=== PATIENT | female | born 1945 | race Caucasian/White ===

== ENCOUNTER → 2023-10-29 08:58 | Outpatient (REF) | payer OTHER, SELFPAY ==
[2023-10-29 12:04] LABS: Blood Urea Nitrogen 30 mg/dl (7-17); Calcium 9.4 mg/dl (8.4-10.2); Carbon Dioxide 32 mmol/L (22-30); Chloride 102 mmol/L (98-107); Glucose 118 mg/dl (70-99); Potassium 4.5 mmol/L (3.5-5.1); Sodium 138 mmol/L (135-145); eGFR > 60.00
[2023-10-29 12:14] LABS: Glycohemoglobin (HgbA1c) 6.2 % (4.0-5.6)
== END ==
LOC: HWLAB 08:58
PROVIDERS: ATTENDING PHYSICIAN Internal Medicine
DX: I10 Essential (primary) hypertension (principal); E11.9 Type 2 diabetes mellitus without complications
CPT/HCPCS: 36415; 80048; 83036

== ENCOUNTER → 2023-12-30 10:43 | Outpatient (REF) | payer OTHER, SELFPAY | LOC: HWRAD 10:43 | PROVIDERS: ATTENDING PHYSICIAN Internal Medicine Rheumatology; PRIMARYCARE PHYSICIAN Internal Medicine | DX: M81.0 Age-related osteoporosis without current pathological fracture (principal) | CPT/HCPCS: 77080 ==

== ENCOUNTER → 2024-03-13 17:04 | Outpatient (REF) | payer OTHER, SELFPAY | LOC: PAVMRI 17:04 | PROVIDERS: ATTENDING PHYSICIAN Physical Medicine & Rehabilitation; FAMILY PHYSICIAN Internal Medicine | DX: G89.4 Chronic pain syndrome (principal); M47.816 Spondylosis without myelopathy or radiculopathy, lumbar region; M46.1 Sacroiliitis, not elsewhere classified; M48.062 Spinal stenosis, lumbar region with neurogenic claudication | CPT/HCPCS: 72148 ==

== ENCOUNTER → 2024-04-10 13:27 | Outpatient (REF) | payer OTHER, SELFPAY | LOC: RAD 13:27 | PROVIDERS: ATTENDING PHYSICIAN Physical Medicine & Rehabilitation; FAMILY PHYSICIAN Internal Medicine | DX: G89.4 Chronic pain syndrome (principal); M47.816 Spondylosis without myelopathy or radiculopathy, lumbar region; M46.1 Sacroiliitis, not elsewhere classified; M48.062 Spinal stenosis, lumbar region with neurogenic claudication | CPT/HCPCS: 72114 ==

== ENCOUNTER → 2024-04-25 14:43 | Outpatient (REF) | payer OTHER, SELFPAY | LOC: RAD 14:43 | PROVIDERS: ATTENDING PHYSICIAN Hospitalist | DX: A69.23 Arthritis due to Lyme disease (principal) | CPT/HCPCS: 73560 ==

== ENCOUNTER → 2024-04-28 09:10 | Outpatient (REF) | payer OTHER, SELFPAY ==
[2024-04-28 11:30] LABS: % Basophils 0.5 % (0-2); % Eosinophils 4.1 % (0-6); % Immature Granulocytes 0.2 % (0-0.5); % Lymphocytes 23.9 % (20.5-51.1); % Monocytes 8.4 % (1.7-9.3); % Neutrophils 62.9 % (42.2-75.2); Absolute Eosinophils 0.3 10^3/uL (0-0.7); Absolute Lymphocytes 1.5 10^3/uL (1.2-3.4); Absolute Monocytes 0.5 10^3/uL (0.1-0.6); Hematocrit 43.8 % (37.0-47.0); Hemoglobin 14.6 g/dL (12.0-16.0); Mean Corp Hgb Conc. 33.3 g/dL (33.0-37.0); Mean Corpuscular Hgb 30.4 pg (27.0-31.0); Mean Corpuscular Volume 91.1 fL (81.0-99.0); Mean Platelet Volume 11.1 fL (7.4-10.4); Nucleated Red Blood Cells % 0 %; Platelet Count 270 10^3/uL (130-400); Red Blood Cell Count 4.81 10^6/uL (4.20-5.40); Red Cell Dist. Width 12.9 % (11.5-14.5); White Blood Cell Count 6.4 10^3/uL (4.8-10.8)
[2024-04-28 11:50] LABS: Albumin 4.4 g/dl (3.5-5.0); Carbon Dioxide 31 mmol/L (22-30); Total Cholesterol 262 mg/dl (50-199)
[2024-04-28 12:00] LABS: ALT (SGPT) 19 U/L (0-35); AST (SGOT) 25 U/L (14-36); Alkaline Phosphatase 91 U/L (38-126); Blood Urea Nitrogen 32 mg/dl (7-17); Calcium 10.4 mg/dl (8.4-10.2); Chloride 99 mmol/L (98-107); Glucose 112 mg/dl (70-99); HDL Cholesterol 43 mg/dl; LDL Cholesterol, Calculated 171 mg/dl; Potassium 5.1 mmol/L (3.5-5.1); Sodium 143 mmol/L (135-145); Total Bilirubin 0.8 mg/dl (0.2-1.3); Total Protein 6.7 g/dl (6.3-8.2); Triglyceride 243 mg/dl (10-149); Very Low Density Lipoprotein 48 mg/dl (0-30); eGFR > 60.00
[2024-04-28 12:13] LABS: TSH 0.95 uIU/ml (0.47-4.68)
== END ==
LOC: HWLAB 09:10
PROVIDERS: ATTENDING PHYSICIAN Internal Medicine
DX: I10 Essential (primary) hypertension (principal); R00.2 Palpitations; E66.9 Obesity, unspecified; I49.3 Ventricular premature depolarization
CPT/HCPCS: 36415; 80053; 80061; 83036; 84443; 85025

== ENCOUNTER → 2024-05-09 18:44 | Outpatient (REF) | payer OTHER, SELFPAY | LOC: PAVMRI 18:44 | PROVIDERS: ATTENDING PHYSICIAN Physician Assistant; FAMILY PHYSICIAN Internal Medicine | DX: M25.562 Pain in left knee (principal) | CPT/HCPCS: 73721 ==

== ENCOUNTER 2024-08-14 14:26 | Outpatient (RCR) | payer OTHER, SELFPAY | END 2024-08-14 23:59 | disposition home or self-care (01) | LOC: RPT 14:26 | PROVIDERS: ATTENDING PHYSICIAN Specialist; FAMILY PHYSICIAN Internal Medicine | DX: M19.011 Primary osteoarthritis, right shoulder (principal); Z73.6 Limitation of activities due to disability; M62.81 Muscle weakness (generalized); Z96.612 Presence of left artificial shoulder joint | CPT/HCPCS: 97010; 97110; 97112; 97140; 97162 ==

== ENCOUNTER 2024-09-06 13:03 | Outpatient (RCR) | payer OTHER, SELFPAY | END 2024-09-06 13:54 | disposition home or self-care (01) | LOC: RPT 13:03 | PROVIDERS: ATTENDING PHYSICIAN Specialist; FAMILY PHYSICIAN Internal Medicine | DX: M19.011 Primary osteoarthritis, right shoulder (principal); Z73.6 Limitation of activities due to disability; M62.81 Muscle weakness (generalized); Z96.612 Presence of left artificial shoulder joint | CPT/HCPCS: 97010; 97110; 97112; 97140 ==

== ENCOUNTER 2024-10-06 06:07 | Inpatient (IN) | payer OTHER, SELFPAY ==
[2024-09-12 13:29] VITALS: BMI 36.7
[2024-09-12 14:07] LABS: Hematocrit 42.7 % (37.0-47.0); Hemoglobin 13.6 g/dL (12.0-16.0); Mean Corp Hgb Conc. 31.9 g/dL (33.0-37.0); Mean Corpuscular Volume 94.1 fL (81.0-99.0); Mean Platelet Volume 11.3 fL (7.4-10.4); Platelet Count 298 10^3/uL (130-400); Red Blood Cell Count 4.54 10^6/uL (4.20-5.40); Red Cell Dist. Width 12.8 % (11.5-14.5); White Blood Cell Count 10.2 10^3/uL (4.8-10.8)
[2024-09-12 14:34] LABS: ALT (SGPT) 16 U/L (0-35); AST (SGOT) 21 U/L (14-36); Albumin 4.2 g/dl (3.5-5.0); Alkaline Phosphatase 74 U/L (38-126); Blood Urea Nitrogen 41 mg/dl (7-17); Calcium 9.1 mg/dl (8.4-10.2); Carbon Dioxide 35 mmol/L (22-30); Chloride 95 mmol/L (98-107); Estimated Creatinine Clearance 44 ml/min; Glucose 96 mg/dl (70-99); Potassium 4.8 mmol/L (3.5-5.1); Sodium 138 mmol/L (135-145); Total Bilirubin 0.4 mg/dl (0.2-1.3); Total Protein 6.5 g/dl (6.3-8.2); eGFR 42.35
[2024-09-29 10:53] VITALS: BMI 36.7
[2024-09-29 11:28] VITALS: BMI 36.7
--- NOTE | 2024-10-02 08:12 | PTCARENOTE ---
Patients 09/12 BUN -41; Creat- 1.3; GFR -42.35- Geeta @ Dr. Mcgee office notified
[2024-10-06] VITALS (25 sets, daily range): BP systolic 120–173; BP diastolic 61–133
[2024-10-06] MEDS: CELEBREX 200 MG PO (06:46)
[2024-10-06] MEDS: NORMOSOL-R/PLASMALYTE-A 1000 IV (06:46)
[2024-10-06] MEDS: TYLENOL 1000 MG PO (06:46)
--- NOTE | 2024-10-06 08:38 | CON.PUL ---
Consultation
Consultation Request
Date/Time Consultation Requested: 10/06/2024819
Date/Time Consultation Performed: 10/06/2024834
Requesting Provider: Dr. Merritt
Performing Provider: Dr. Mondragon
Reason for Consultation: SOB/Hypoxia/Cyanosis
Medical History
-
Chief Complaint: Elective right shoulder replacement
History of Present Illness:
79-year-old female non-smoker with a past medical history of osteoarthritis of right shoulder, hypertension, mixed hyperlipidemia, paroxysmal SVT, history of PVCs s/p ablation, GERD, history of AK, cervical stenosis, history of Lyme disease, and
lumbar stenosis who presents with elective right reverse shoulder replacement by Dr. Mcgee. In SDS, the patient was saturating 96% via her right great toe as her hands showed hypoxia to 93%. She says that this is common for her. Patient had an
interscalene block and while she was transferring to the bed she became very short of breath, hypoxic and cyanotic. Procedure was canceled and she went to the PACU for further management and was placed onto oxygen, currently on 2 L/min. She did
require up to 60% FiO2 during this event. CXR shows elevated right hemidiaphragm which was also present in 2019, which is now worsened likely due to presence of interscalene block. Pulmonary service now consulted for additional
management/recommendations.
When I saw the patient she is still feeling short of breath during movement only. Not short of breath at rest. She is not normally short of breath and has no respiratory difficulties during daily activities. Currently denies cough, NAVARRETE, chest
pain, nausea, fevers or chills.
PMHx: Right shoulder arthritis, hypertension, mixed hyperlipidemia, paroxysmal SVT, prediabetes, RBBB, History of AK, history of PVC ablation, GERD, cervical stenosis, lumbar stenosis, history of Lyme disease
PSHx: Right hip replacement, left hip replacement, parathyroidectomy, left shoulder reversal, right hip revision, minimally invasive lumbar decompression
Past Medical History
Past Medical History: Other (Above as per HPI)
Past Surgical History: Other (Above as per HPI)
Social History
Tobacco: Non-smoker
Alcohol: None
Drug: None
Family History
Family History: Cancer (Mother + father), Hypertension (Mother + father) and Other (Paternal grandmother: Renal disease)
Allergies / Home Medications
Allergies
Allergy/AdvReac Type Severity Reaction Status Date / Time
amoxicillin [Amoxicillin] Allergy Rash Verified 10/06/24 06:30
Penicillins Allergy Rash Verified 10/06/24 06:30
Home Medications
�Medication �Instructions �Recorded �Confirmed �Last Taken �Type
metoprolol succinate 50 mg 100 mg PO DAILY 07/13/11 10/06/24 10/06/24 04:30 History
tablet,extended release 24 hr
amlodipine 10 mg tablet 10 mg PO DAILY Blood pressure #30 04/20/19 10/06/24 10/06/24 04:30 Rx
tabs
cetirizine 10 mg tablet (Zyrtec) 10 mg PO DAILY 09/29/24 10/06/24 10/05/24 09:00 History
cholecalciferol (vitamin D3) 125 125 mcg PO DAILY 09/29/24 10/06/24 09/29/24 History
mcg (5,000 unit) tablet (Vitamin
D3)
diclofenac sodium 100 mg 100 mg PO BID 09/29/24 10/06/24 09/29/24 History
tablet,extended release 24 hr
gabapentin 300 mg capsule 300 mg PO TID 09/29/24 10/06/24 10/06/24 04:30 History
gabapentin 600 mg tablet 600 mg PO TID 09/29/24 10/06/24 10/06/24 04:30 History
magnesium glycinate 400 mg PO NOON 09/29/24 10/06/24 09/30/24 History
mupirocin 2 % topical ointment 1 applic topical BID 09/29/24 10/06/24 10/06/24 04:30 History
omeprazole 20 mg tablet,delayed 20 mg PO HS 09/29/24 10/06/24 10/04/24 History
release
tramadol 50 mg tablet 50 mg PO BID 09/29/24 10/06/24 10/05/24 17:00 History
valsartan 320 mg tablet 320 mg PO DAILY 09/29/24 10/06/24 10/05/24 09:00 History
vibegron 75 mg tablet (Gemtesa) 75 mg PO DAILY 09/29/24 10/06/24 10/06/24 04:30 History
Review of Systems
-
History Source: Patient
All other systems: Negative unless noted
Vitals / Labs / Diagnostic Testing
Vital Signs
Temp Pulse Resp BP Pulse Ox
98 F 70 22 155/77 92
10/06/24 07:35 10/06/24 08:00 10/06/24 08:00 10/06/24 08:00 10/06/24 08:33
Lab Data
09/12/24 12:57
Diagnostic Testing:
Physical Exam
-
HEENT: Normocephalic and Anicteric
Cardiovascular: S1/S2, Rub (negative) and Peripheral Edema (negative)
Respiratory: Clear, Wheeze (negative), Rales (negative), Rhonchi (negative) and Non-Labored Respirations
GI: Soft, Distended (Abdominal obesity), Non Tender and Normal Bowel Sounds
Neurology: AO x 3 and Tremors (negative)
Skin: Warm and Dry
General: Respiratory Distress (negative), Comfortable, Fever (negative) and Chills (negative)
Assessment
-
Assessment: 79-year-old female non-smoker with a past medical history of osteoarthritis of right shoulder, hypertension, mixed hyperlipidemia, paroxysmal SVT, history of PVCs s/p ablation, GERD, history of AK, cervical stenosis, history of Lyme
disease, and lumbar stenosis who presents with elective right reverse shoulder replacement by Dr. Mcgee. In SDS, the patient was saturating 96% via her right great toe as her hands showed hypoxia to 93%. She says that this is common for her.
Patient had an interscalene block and while she was transferring to the bed she became very short of breath, hypoxic and cyanotic. Procedure was canceled and she went to the PACU for further management and was placed onto oxygen, currently on 2
L/min. She did require up to 60% FiO2 during this event. CXR shows elevated right hemidiaphragm which was also present in 2019, which is now worsened likely due to presence of interscalene block. Pulmonary service now consulted for additional
management/recommendations.
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
Impression:
#Acute SOB with hypoxia and cyanosis
#Moderate right hemidiaphragm elevation
#Primary osteoarthritis of the right shoulder with planned right reverse shoulder replacement
#Obesity (BMI: 36.7)
#History of paroxysmal SVT
#History of PVCs s/p ablation
#GERD
#History of lung disease
#Hypertension
Plan:
- Seems that pt had a sudden hypoxic event while transferring to the bed for a right reverse shoulder replacement, occuring after an interscalene block
- She does have an elevated right hemidoaphragm, and I suspect that she had a hypoventilatory event that caused her symptoms although after speaking with anesthesia, usually patient's do not have this side effect even with a poor pulmonary status
- I will give her a DuoNeb treatment now to see if she feels any better as she still feels SOB with talking or with movement
- If her respiratory status improves then she potentially could get the surgery today
- Regardless if she has surgery today or not, if SOB persists then she will need to be admitted for continued observation
- Keep off o2 to see what her requirements are, and maintain SpO2 >90-94%
- Place back onto o2 if needed to maintain sats above
- Check blood work including a chemistry with Mg and phosphorus level, BNP and troponin (pending)
- She clinically is not volume overloaded and her EKG does not show signs of ischemia
- Continue prn nebulized bronchodilators - not currently bronchospastic
- Incentive spirometer if she gets admitted to prevent atelectasis
- Replete electrolytes with K>4, Mg>2
- Trend H/H and transfuse if needed to keep Hb>7g/dL; keep plt>20k, unless there is concern for bleeding then keep plt>50k
- Maintain euglycemia with goal BG >100 and <180
- DVT ppx: SCDs for now; if she gets admitted then start chemical ppx
Pulmonary service will continue to follow along.
Data:
CXR 10/06/2024:
No acute disease of the chest.
Moderate elevation of the right hemidiaphragm. Progressed. Diaphragmatic paralysis cannot be excluded.
Total time spent today was 57 minutes for this encounter. Time includes reviewing laboratory test/imaging results, reviewing pertinent medical records, obtaining and reviewing medical history, performing an appropriate exam, ordering medications,
tests and procedures. Time also includes documentation of this encounter, coordinating patient care and communicating with other healthcare professionals. Total time does not include separately billed tests performed on this date of service.
[2024-10-06] MEDS: DUONEB 3 ML INH ×2 (10:09→14:12)
--- NOTE | 2024-10-06 10:13 | CON.CAR ---
Addendum entered and electronically signed by Chalo Bautista DO 10/06/24 14:20:
Addendum:
Echocardiogram shows normal LV RV function, EF55-60%, no significant VHD, PASP 30-35mmHg.
Addendum entered and electronically signed by Chalo Bautista DO 10/06/24 14:06:
I saw and examined the patient.
The Installer Apprentice's note was reviewed and I agree with the note.
Comment:
GENERAL: no acute distress
EYE: sclera anicteric
NECK: Supple, no JVD, no carotid bruit appreciated
ENT: normal nose, moist mucosal membranes
CARDIAC: Regular rate and rhythm, +S1/S2, no murmur, rubs, or gallops
CHEST/PULMONARY: Normal effort, clear breath sounds
ABDOMEN: Soft, without focal tenderness or distention
NEUROLOGICAL: Alert and oriented x3
SKIN: Warm and dry, no rash
PSYCH: Normal and appropriate interaction.
EKG sinus rhythm right bundle branch block no significant change from prior on 09/12/2024
A/P as below
Patient reporting ability to achieve greater than equal to 4 metabolic equivalents of activity without limitation
Patient experienced shortness of breath episode with hypoxia and cyanosis following interscalene block; patient has known right hemidiaphragm. Patient underwent evaluation by pulmonology who provided DuoNeb treatment and believe patient stable for
proceed with procedure
Lab work stable including BNP (less than 100), troponin negative
Check transthoracic echo, if no significant change from prior or significant valvular disease/cardiomyopathy, acceptable risk to proceed as planned as likely related to nerve block and underlying hypoventilation syndrome but will defer judgment to
anesthesia and surgical team
Original Note:
Consultation
Consultation Request
Date/Time Consultation Requested: 10/06/2024
Date/Time Consultation Performed: 10/06/2024
Requesting Provider: Orthopedics
Performing Provider: Latasha Escobedo PA-C for Dr. Bautista
Reason for Consultation: Shortness of breath
Medical History
-
History of Present Illness:
Patient is a 79-year-old female with past medical history significant for hypertension, SVT status post ablation, PVCs, hypertension, GERD, stress incontinence, osteoarthritis and remote AL 2004 who presents for elective right TSA 10/06/2024 with
Everardo. Patiently initially was saturating 96% via her right great toe and 93% pulse oximetry of her hands prior to surgery. Patient had interscalene block and while she was transferring to the bed she became very short of breath, hypoxic and
cyanotic requiring 60% FiO2 during event. Procedure was canceled and she was transferred back to PACU for further management where she was was placed onto supplemental oxygen. Cardiology consult requested. EKG showed sinus rhythm with right bundle
branch block with nonspecific T wave inversion now in anterolateral leads. Chest x-ray showed no acute cardiopulmonary disease with moderate elevation of right hemidiaphragm which is progressed from prior study in 2019. At time of this evaluation
patient resting comfortably in bed. She is now off oxygen and denies chest pain, shortness of breath, palpitations, orthopnea, PND, edema
Patient reports normally she is able to perform activities and chores around the house without chest pain or shortness of breath.
Past medical history:
Hypertension
Mixed hyperlipidemia
Supraventricular tachycardia, status post ablation 2006 Dr. Dee
Remote AL in 2004
Right bundle branch block
PVCs
GERD
Cervical stenosis
Lumbar stenosis
Lyme disease.
Past Medical History
Past Medical History: Other (See HPI)
Past Surgical History: Orthopedic (Right total hip replacement 1997, left hip replacement 1996, left shoulder reversal October 2017, right hip revision February 2017 lumbar decompression March 2021) and Other (Parathyroidectomy 2016)
Social History
Tobacco: Non-Smoker
Alcohol: None
Drug: None
Personal:
Living: With Family
Family History
Family History: Other (Father: Cancer, hypertension. Mother: Cancer, hypertension)
Allergies / Home Medications
Allergy/AdvReac Type Severity Reaction Status Date / Time
amoxicillin [Amoxicillin] Allergy Rash Verified 10/06/24 06:30
Penicillins Allergy Rash Verified 10/06/24 06:30
�Medication �Instructions �Recorded �Confirmed �Type
metoprolol succinate 50 mg 100 mg PO DAILY 07/13/11 10/06/24 History
tablet,extended release 24 hr
amlodipine 10 mg tablet 10 mg PO DAILY Blood pressure #30 04/20/19 10/06/24 Rx
tabs
cetirizine 10 mg tablet (Zyrtec) 10 mg PO DAILY 09/29/24 10/06/24 History
cholecalciferol (vitamin D3) 125 125 mcg PO DAILY 09/29/24 10/06/24 History
mcg (5,000 unit) tablet (Vitamin
D3)
diclofenac sodium 100 mg 100 mg PO BID 09/29/24 10/06/24 History
tablet,extended release 24 hr
gabapentin 300 mg capsule 300 mg PO TID 09/29/24 10/06/24 History
gabapentin 600 mg tablet 600 mg PO TID 09/29/24 10/06/24 History
magnesium glycinate 400 mg PO NOON 09/29/24 10/06/24 History
mupirocin 2 % topical ointment 1 applic topical BID 09/29/24 10/06/24 History
omeprazole 20 mg tablet,delayed 20 mg PO HS 09/29/24 10/06/24 History
release
tramadol 50 mg tablet 50 mg PO BID 09/29/24 10/06/24 History
valsartan 320 mg tablet 320 mg PO DAILY 09/29/24 10/06/24 History
vibegron 75 mg tablet (Gemtesa) 75 mg PO DAILY 09/29/24 10/06/24 History
Review of Systems
-
History Source: Patient
All other systems: Negative unless noted
Physical Exam
Vital Signs
Temp Pulse Resp BP Pulse Ox
98 F 65 14 131/68 93
10/06/24 07:35 10/06/24 09:30 10/06/24 09:30 10/06/24 09:30 10/06/24 09:31
Lab Results
09/12/24 12:57
Impression / Plan
-
PCP: Vu Irving
Warehouse Material Handler: Jose F Vernon, last seen in cardiology office in 2018
Impression:
Presented 10/06/2024 for elective shoulder replacement and developed acute shortness of breath
Acute shortness of breath with hypoxia and cyanosis
Moderate right hemidiaphragm elevation
Abnormal EKG
Hypertension
Mixed hyperlipidemia
Supraventricular tachycardia, status post ablation 2006 Dr. Dee
Remote AL in 2004
Right bundle branch block
PVCs
GERD
Cervical stenosis
Lumbar stenosis
Lyme disease
Lexiscan stress 02/22/2019: Rare PVCs. Myocardial imaging with mildly decreased perfusion that is fixed and apex consistent with soft tissue attenuation. LV ejection fraction 55% with normal contractility.
Stress echo 04/08/2016: exercise 4:00 (5.8 METs). ECG: Normal. Stress echo images demonstrated no evidence of stress-induced ischemia
echo 11/14/2018: Normal LV size and systolic function, EF 55-60 percent. Normal RV size and systolic function. Normal atria. Trace MR. Trileaflet sclerotic aortic valve with no AI. Trace TR.
Cath 10/13/2010: [facility]: LM: Normal, LAD: Normal size with moderate atherosclerosis and 50% mid, LCX: Normal, RCA: Normal. LVEF: 60% (Dr. Bret Strickland)
Plan:
-Presented 10/06/2024 for elective shoulder replacement and developed acute shortness of breath with hypoxia and cyanosis while transferring to bed from stretcher after getting interscalene block
-Initially required 60% FiO2 then transitioned to 2 L oxygen via nasal cannula with improvement of symptoms. Now on room air with good saturation
-Chest x-ray showed moderate right hemidiaphragm elevation
-EKG sinus rhythm with right bundle branch block and new anterolateral T wave inversion. Possibly due to lead placement. Patient denies chest pain. Would repeat EKG
-Check proBNP (although patient does not look acutely volume overloaded and does not have history of heart failure) and troponin
-Check echo
-Continue to monitor on telemetry
-Patient was last seen in cardiology office in 2019. At that time she had normal LV size and function and no significant valvular disease. She had nuclear stress test in 2019 which did not demonstrate any ischemia.
-Pulmonary has been consulted. Review of their consultation suggest hypoventilatory event as a cause of her symptoms. They have recommended nebulizer treatment
HPI 10/06/2024:
Patient is a 79-year-old female with past medical history significant for hypertension, SVT status post ablation, PVCs, hypertension, GERD, stress incontinence, osteoarthritis and remote AL 2004 who presents for elective right TSA 10/06/2024 with
Everardo. Patiently initially was saturating 96% via her right great toe and 93% pulse oximetry of her hands prior to surgery. Patient had interscalene block and while she was transferring to the bed she became very short of breath, hypoxic and
cyanotic requiring 60% FiO2 during event. Procedure was canceled and she was transferred back to PACU for further management where she was was placed onto supplemental oxygen. Cardiology consult requested. EKG showed sinus rhythm with right bundle
branch block with nonspecific T wave inversion now in anterolateral leads. Chest x-ray showed no acute cardiopulmonary disease with moderate elevation of right hemidiaphragm which is progressed from prior study in 2019. At time of this evaluation
patient resting comfortably in bed. She is now off oxygen and denies chest pain, shortness of breath, palpitations, orthopnea, PND, edema
Patient reports normally she is able to perform activities and chores around the house without chest pain or shortness of breath.
Data Reviewed
-
EKG: Report Reviewed by me, Discussed with Physician, Discussed with Nurse, Discussed with Patient and Discussed with Family
Radiology: Report Reviewed by me, Discussed with Physician, Discussed with Nurse, Discussed with Patient and Discussed with Family
Old Records: Reviewed
[2024-10-06 11:38] LABS: NT-proBNP 64.3 pg/ml; Troponin I < 0.012 ng/ml
[2024-10-06 11:43] LABS: Blood Urea Nitrogen 27 mg/dl (7-17); Calcium 8.5 mg/dl (8.4-10.2); Carbon Dioxide 27 mmol/L (22-30); Chloride 98 mmol/L (98-107); Estimated Creatinine Clearance 95 ml/min; Glucose 131 mg/dl (70-99); Potassium 4.3 mmol/L (3.5-5.1); Sodium 134 mmol/L (135-145); eGFR > 60.00
--- NOTE | 2024-10-06 12:51 | W.PN.UPDATE ---
Update Note
Progress Note Update
Went back to see the patient after she received a DuoNeb treatment. She feels well, saying that she can take a deep breath now and is not nearly as short of breath. I touch base with anesthesia, with Dr. Merritt, and said that I believe patient is
stable for OR now.
--- NOTE | 2024-10-06 14:55 | PTCARENOTE ---
Patient taken back to OR @ [id number]. Monitored in PACU until cleared to proceed.
--- NOTE | 2024-10-06 15:14 | W.PN.UPDATE ---
Update Note
Progress Note Update
R shoulder OA s/p R Reverse MANDEEP w/ Dr Mcgee 10/06/24
- s/p L Reverse MANDEEP, 2018, remote R SHANKAR w/ subsequent multiple revisions, and remote L SHANKAR
DVT prophylaxis - ASA, b/l venous foot pumps
Acute SOB with hypoxia and cyanosis in the setting of moderate right hemidiaphragm elevation and interscalene block
- BMP stable, troponin neg, BNP/EKG WNL
- Monitor O2 on continuous pulse ox
- IS
- Improved w/ Duoneb -> continue
- Minimize opioids as able
- Appreciate pulmonary and cardio
HTN - + parameters - monitor BP
PSVT s/p ablation, PVCs, CAD w/ remote ND - monitor on tele
Seasonal asthma - monitor O2
- IS
CKD stage 3 - minimize nephrotoxins
GERD - continue PPI therapy HS
Peripheral neuropathy - continue Gabapentin
- Consider change to Lyrica
HLD
RBBB
Cervical and lumbar stenosis
OAB w/ stress incontinence
Lyme disease
Depression
Anxiety
Osteopenia
Obesity, BMI 36.7
[2024-10-06] MEDS: DILAUDID 0.25 MG IV ×2 (17:05→17:17)
[2024-10-06] MEDS: NEURONTIN 900 MG PO ×2 (17:51→23:05)
[2024-10-06] MEDS: NSS 1000 IV (17:53)
--- NOTE | 2024-10-06 18:39 | PTCARENOTE ---
Pt arrived to 2S in bed. RUE with + sensation and movement (able to wiggle to fingers), palpable radial pulse, warm to touch and cap refill < 2 secs. RUE maintained in sling. NWB status reviewed with pt, pt verbalized understanding. RUE maintained
in sling. IVF initiated. Telemetry and continuous pulse ox monitor applied. Pt instructed to ring for assistance getting OOB, verbalized understanding. Denies pain/ nausea. Bed locked and in the lowest position, safety maintained. Oriented to room
and call staley, spouse at bedside.
[2024-10-06] MEDS: COLACE 100 MG PO (20:15)
[2024-10-06] MEDS: DECADRON 4 MG PO (20:18)
[2024-10-06] MEDS: SENOKOT 17.2 MG PO (20:27)
[2024-10-06] MEDS: BACTROBAN 2% OINTMENT 1 APPLIC NASAL (20:28)
[2024-10-06] MEDS: DILAUDID 0.5 MG IV (20:34)
[2024-10-06] MEDS: ASPIRIN 325 MG PO (21:06)
[2024-10-06] MEDS: DIOVAN 320 MG PO (21:06)
[2024-10-06] MEDS: PROTONIX 40 MG PO (21:07)
[2024-10-06] MEDS: ANCEF 5 IV (21:07)
[2024-10-06] MEDS: VITAMIN D3 (cholecalciferol) PO (21:39)
[2024-10-06] MEDS: ZYRTEC PO (21:39)
[2024-10-06] MEDS: TYLENOL 650 MG PO (23:06)
[2024-10-07] MEDS: DILAUDID 0.5 MG IV (02:14)
[2024-10-07] MEDS: TYLENOL PO (04:36)
[2024-10-07] MEDS: ANCEF 5 IV (05:39)
[2024-10-07 07:25] VITALS: BP 164/97
[2024-10-07] MEDS: ROXICODONE 5 MG PO (08:56)
[2024-10-07] MEDS: SENOKOT 17.2 MG PO (08:57)
[2024-10-07] MEDS: TOPROL XL 100 MG PO (08:58)
[2024-10-07] MEDS: ASPIRIN 325 MG PO (08:58)
[2024-10-07] MEDS: NORVASC 10 MG PO (08:58)
[2024-10-07] MEDS: COLACE 100 MG PO (08:58)
[2024-10-07] MEDS: DECADRON 4 MG PO (08:58)
[2024-10-07] MEDS: TYLENOL 650 MG PO ×2 (08:58→11:10)
[2024-10-07] MEDS: BACTROBAN 2% OINTMENT 1 APPLIC NASAL (08:59)
[2024-10-07] MEDS: VITAMIN D3 (cholecalciferol) 125 MCG PO (08:59)
[2024-10-07] MEDS: ZYRTEC 10 MG PO (08:59)
[2024-10-07] MEDS: DIOVAN 320 MG PO (09:02)
[2024-10-07] MEDS: NEURONTIN 900 MG PO (09:02)
--- NOTE | 2024-10-07 10:14 | CM ---
Reviewed the chart notes and spoke with the patient at the bedside. VN order received. Discussed VN with patient, she declined. Patient resides with spouse in a one story home with three steps to enter. The patient reports using a cane for long
distance walking and has a shower rail. The patient has had [facility] in the past and been to a SNF in [place]. The patient confirmed her pharmacy of choice is [facility]. CM continues to be available to patient/family and is
monitoring medical plan for needs at discharge.
Plan: Discharge to home when medically stable. Spouse will provide transportation. No needs anticipated at this time.
--- NOTE | 2024-10-07 10:15 | W.PN.PUL3 ---
Today's Communication / Plan
-
Post-operative management as per orthopedic surgery
Encourage incentive spirometer
Up OOB as tolerated
prn DuoNebs
Outpatient pulmonary office follow-up will be arranged for full PFT and possibly sniff test test for further evaluation of her elevated right hemidiaphragm
Patient is being prepared for discharge home. No additional recommendations at this time. Pulmonary service will now sign off. Please reconsult if there are any additional questions/concerns, or if patient's respiratory status deteriorates.
Assessment
-
Assessment: 79-year-old female non-smoker with a past medical history of osteoarthritis of right shoulder, hypertension, mixed hyperlipidemia, paroxysmal SVT, history of PVCs s/p ablation, GERD, history of [place], cervical stenosis, history of Lyme
disease, and lumbar stenosis who presents with elective right reverse shoulder replacement by Dr. Mcgee. In SDS, the patient was saturating 96% via her right great toe as her hands showed hypoxia to 93%. She says that this is common for her.
Patient had an interscalene block and while she was transferring to the bed she became very short of breath, hypoxic and cyanotic. Procedure was canceled and she went to the PACU for further management and was placed onto oxygen, currently on 2
L/min. She did require up to 60% FiO2 during this event. CXR shows elevated right hemidiaphragm which was also present in 2019, which is now worsened likely due to presence of interscalene block. Pulmonary service now consulted for additional
management/recommendations.
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
Impression:
#Acute SOB with hypoxia and cyanosis
#Moderate right hemidiaphragm elevation
#Primary osteoarthritis of the right shoulder s/p right reverse total shoulder arthroplasty (POD#1)
#Obesity (BMI: 36.7)
#History of paroxysmal SVT
#History of PVCs s/p ablation
#GERD
#History of lung disease
#Hypertension
Plan:
- Appears that pt had a sudden hypoxic event while transferring to the bed yesterday pre-operatively for a right reverse shoulder replacement, occurring after an interscalene block
- She does have an elevated right hemidiaphragm, and I suspect that she had a hypoventilatory event that caused her symptoms although after speaking with anesthesia, usually patient's do not have this side effect even with poor pulmonary status
- Patient felt much better after a DuoNeb treatment; would continue with DuoNebs as needed (not currently bronchospastic)
- Patient went to the OR yesterday afternoon for a right reverse total shoulder arthroplasty with no immediate complications
- Postoperative management as per orthopedic surgery
- Maintain SpO2 >90-94%; she is saturating 97% on room air; no need for walking pulse oximetry at this time
- Blood work from yesterday shows mild hyponatremia with normal proBNP and negative troponin
- Her serum sodium can be rechecked as an outpatient
- She clinically is not volume overloaded and her EKG did not show signs of ischemia
- Incentive spirometer q1hr while awake to prevent atelectasis
- Replete electrolytes with K>4, Mg>2
- Trend H/H and transfuse if needed to keep Hb>7g/dL; keep plt>50k given her post-operative status
- Maintain euglycemia with goal BG >100 and <180
- DVT ppx: start chemical ppx
Patient is being prepared for discharge home. No additional recommendations at this time. Pulmonary service will now sign off. Thank you for allowing us to be involved in the care of this patient. Please reconsult if there are any additional
questions/concerns, or if patient's respiratory status deteriorates.
Data:
CXR 10/06/2024:
No acute disease of the chest.
Moderate elevation of the right hemidiaphragm. Progressed. Diaphragmatic paralysis cannot be excluded.
Total time spent today was 28 minutes for this encounter. Time includes reviewing laboratory test/imaging results, reviewing pertinent medical records, obtaining and reviewing medical history, performing an appropriate exam, ordering medications,
tests and procedures. Time also includes documentation of this encounter, coordinating patient care and communicating with other healthcare professionals. Total time does not include separately billed tests performed on this date of service.
Subjective Data
-
Date of Service:
Date of Service: October 07, 2024
Chief Complaint: Pulmonary Follow Up
Subjective:
Patient seen and evaluated today at bedside. She is doing well and wants to go home. No events reported from overnight. Shortness of breath is markedly improved. She denies chest pain, [place], nausea, fevers or chills.
Review of Systems
General: Other (Negative unless mentioned above)
Objective Data
Data Reviewed
Vital Signs / I&O / Oxygen:
Vital Signs
Temp Pulse Resp BP Pulse Ox
98.0 F 95 16 164/97 90
10/07/24 07:25 10/07/24 09:02 10/07/24 07:25 10/07/24 09:02 10/07/24 07:25
Intake and Output
10/06/24 10/07/24 10/08/24
06:59 06:59 06:59
Intake Total 1440 / 1440
Balance 1440 / 1440
SaO2 90
Nasal Cannula flow liters per 2
minute
Physical Exam
General: Respiratory Distress (negative), Comfortable, Chills (negative) and Sweats (negative)
HEENT: Normocephalic and Anicteric
Cardiovascular: S1-S2 and Peripheral Edema (negative)
Respiratory: Clear, Wheeze (negative), Crackles (negative), Rhonchi (negative) and Non-Labored Respirations
GI: Soft, Non Distended, Non Tender and Normal Bowel Sounds
Neurology: AO x 3 and Tremors (negative)
Skin: Warm, Dry, Cyanosis (negative) and Jaundice (negative)
Labs/Micro/Reports
Lab Data
09/12/24 12:57
10/06/24 11:08
[2024-10-07 10:30] VITALS: BP 176/88; PULSE 87; O2SAT 93
--- NOTE | 2024-10-07 10:31 | W.PN.ORTHO ---
Today's Communication / Plan
-
POD #1 s/p right reverse TSA.
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
-NWB RUE.
-Oxycodone, tylenol, diclofenac for pain control.
-ASA 325 mg po daily x 4 weeks.
-Dressing to remain in place x 2 weeks.
-F/u in 2 weeks for post op appt
Assessment
.
Distal Motor Intact: Yes
Dressing:
Clean, dry and intact.
Assessment:
POD #1 s/p right reverse TSA.
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
-NWB RUE.
-Oxycodone, tylenol, diclofenac for pain control.
-ASA 325 mg po daily x 4 weeks.
-Dressing to remain in place x 2 weeks.
-F/u in 2 weeks for post op appt.
Plan
.
Surgery / Date: 10/06/24 - right reverse TSA Dr. Mcgee
DVT Prophylaxis: Aspirin
Activity:
Out of bed.
PT/OT
Discharge Plan: Home
Subjective
.
.:
Patient doing PT upon my arrival. Reports pain is well controlled and feels more like a pressure/tightness from swelling. Ready to go home.
Vital Signs and Labs
.
Vital Signs and Labs:
Lab Results
09/12/24 12:57
10/06/24 11:08
Temp Pulse Resp BP Pulse Ox
98.0 F 95 16 164/97 90
10/07/24 07:25 10/07/24 09:02 10/07/24 07:25 10/07/24 09:02 10/07/24 07:25
Non-invasive Hgb result: 15.9
Physical Exam
-
Right shoulder: dressing is c/d/i. No erythema or drainage. Mild TTP over shoulder. Mild swelling. Able to wiggle fingers.
--- NOTE | 2024-10-07 10:33 | W.DS.TRANS ---
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
-
Discharge Instructions:
Sleep Apnea Risk Intermediate
Discharge Diagnosis/Procedures R shoulder OA s/p R Reverse TSA w/ Dr Mcgee 10/06/
25
Diet Regular
Activity As tolerated
Additional Activity Non-weightbearing right upper extremity
Driving Restrictions Not until seen by your Dr
Bathing Restrictions OK to Shower
Wound Care Leave dressing on until seen by surgeon's office
for follow-up in 2 weeks.
Instructions:
Stand-Alone Forms: Total Shoulder Replacement D/C
Changes to Home Medications: No
Discharge Medications:
DC Medications w/original date entered in [facility]
metoprolol succinate 50 mg tablet,extended release 24 hr 100 mg PO DAILY Blood Pressure 07/13/11
amlodipine 10 mg tablet 10 mg PO DAILY Blood pressure #30 tabs 04/20/19
cetirizine 10 mg tablet (Zyrtec) 10 mg PO DAILY Allergies 09/29/24
cholecalciferol (vitamin D3) 125 mcg (5,000 unit) tablet (Vitamin D3) 125 mcg PO DAILY Supplement 09/29/24
diclofenac sodium 100 mg tablet,extended release 24 hr 100 mg PO BID inflammation 09/29/24
gabapentin 300 mg capsule 300 mg PO TID Pain 09/29/24
gabapentin 600 mg tablet 600 mg PO TID Pain 09/29/24
magnesium glycinate 400 mg PO NOON Supplement 09/29/24
mupirocin 2 % topical ointment 1 applic topical BID Infection 09/29/24
omeprazole 20 mg tablet,delayed release 20 mg PO HS gerd 09/29/24
tramadol 50 mg tablet 50 mg PO BID Pain 09/29/24
valsartan 320 mg tablet 320 mg PO DAILY Blood Pressure 09/29/24
vibegron 75 mg tablet (Gemtesa) 75 mg PO DAILY Urinary Issue 09/29/24
acetaminophen 325 mg tablet 650 mg (2 x 325 mg) PO Q4HWA 14 days #168 tabs 10/07/24
aspirin 325 mg tablet 325 mg PO DAILY 30 days #30 tabs 10/07/24
dexamethasone 4 mg tablet 4 mg PO Q12 3 days #6 tabs 10/07/24
docusate sodium 100 mg capsule 100 mg PO BID 7 days #14 caps 10/07/24
mupirocin 2 % topical ointment 1 applic intranasal BID 2 days 10/07/24
oxycodone 5 mg tablet 5 mg PO Q4HPRN PRN moderate pain 5 days 10/07/24
Home Medication Changes
Pending Results: No
[2024-10-07 11:11] VITALS: BP 162/82
--- NOTE | 2024-10-07 11:30 | PTCARENOTE ---
Patient with elevated BP of 162/82 when taking discharge vitals, which is patients baseline. TONIA Garces notified. Stated okay to discharge, and to notify patient to take BP at home and make sure she is taking BP medications. Patient notified
and agreed.
== END 2024-10-07 11:37 | disposition home or self-care (01) | DRG 483 ==
LOC: 2 SOUTH 06:07
PROVIDERS: ADMITTING PHYSICIAN Specialist; FAMILY PHYSICIAN Internal Medicine; OTHER PHYSICIAN Internal Medicine Critical Care Medicine; OTHER PHYSICIAN Physician Assistant Medical
PROC: 0LS30ZZ Reposition Right Upper Arm Tendon, Open Approach (ICD-10-PCS; 2024-10-06)
PROC: 0RRJ00Z Replacement of Right Shoulder Joint with Reverse Ball and Socket Synthetic Substitute, Open Approach (ICD-10-PCS; 2024-10-06)
DX: M19.011 Primary osteoarthritis, right shoulder (principal); I10 Essential (primary) hypertension; E66.9 Obesity, unspecified; Z68.36 Body mass index [BMI] 36.0-36.9, adult
CPT/HCPCS: 36415; 71045; 73020; 80048; 80053; 83036; 83880; 84484; 85027; 87070; 93005; 93306; 94640; 97166; 97535; C1713; C1776

== ENCOUNTER 2024-11-13 13:48 | Outpatient (RCR) | payer OTHER, SELFPAY | END 2024-11-13 23:59 | disposition home or self-care (01) | LOC: RPT 13:48 | PROVIDERS: ATTENDING PHYSICIAN Specialist; FAMILY PHYSICIAN Internal Medicine | DX: Z47.1 Aftercare following joint replacement surgery (principal); M19.011 Primary osteoarthritis, right shoulder; Z73.6 Limitation of activities due to disability; M62.81 Muscle weakness (generalized); G62.9 Polyneuropathy, unspecified; M25.511 Pain in right shoulder; Z96.611 Presence of right artificial shoulder joint | CPT/HCPCS: 97010; 97110; 97112; 97140; 97162 ==

== ENCOUNTER → 2024-11-24 10:56 | Outpatient (REF) | payer OTHER, SELFPAY ==
[2024-11-24 13:30] LABS: Blood Urea Nitrogen 28 mg/dl (7-17); Calcium 9.6 mg/dl (8.4-10.2); Carbon Dioxide 31 mmol/L (22-30); Chloride 102 mmol/L (98-107); Glucose 101 mg/dl (70-99); Potassium 4.8 mmol/L (3.5-5.1); Sodium 140 mmol/L (135-145); eGFR > 60.00
== END ==
LOC: HWLAB 10:56
PROVIDERS: ATTENDING PHYSICIAN Internal Medicine Rheumatology; FAMILY PHYSICIAN Internal Medicine
DX: M79.18 Myalgia, other site (principal)
CPT/HCPCS: 36415; 80048

== ENCOUNTER → 2024-12-11 13:09 | Outpatient (REF) | payer OTHER, SELFPAY | LOC: RAD 13:09 | PROVIDERS: ATTENDING PHYSICIAN Internal Medicine Critical Care Medicine; FAMILY PHYSICIAN Internal Medicine | DX: J98.6 Disorders of diaphragm (principal) | CPT/HCPCS: 71046; 76000 ==

== ENCOUNTER 2024-12-12 15:06 | Outpatient (RCR) | payer OTHER, SELFPAY | END 2024-12-12 23:59 | disposition home or self-care (01) | LOC: RPT 15:06 | PROVIDERS: ATTENDING PHYSICIAN Specialist; FAMILY PHYSICIAN Internal Medicine | DX: Z47.1 Aftercare following joint replacement surgery (principal); M19.011 Primary osteoarthritis, right shoulder; Z73.6 Limitation of activities due to disability; M62.81 Muscle weakness (generalized); G62.9 Polyneuropathy, unspecified; M25.511 Pain in right shoulder; Z96.611 Presence of right artificial shoulder joint | CPT/HCPCS: 97010; 97110; 97140 ==

== ENCOUNTER 2025-01-10 11:56 | Outpatient (RCR) | payer OTHER, SELFPAY | END 2025-01-10 23:59 | disposition home or self-care (01) | LOC: RPT 11:56 | PROVIDERS: ATTENDING PHYSICIAN Specialist; FAMILY PHYSICIAN Internal Medicine | DX: Z47.1 Aftercare following joint replacement surgery (principal); M19.011 Primary osteoarthritis, right shoulder; Z73.6 Limitation of activities due to disability; M62.81 Muscle weakness (generalized); G62.9 Polyneuropathy, unspecified; M25.511 Pain in right shoulder; Z96.611 Presence of right artificial shoulder joint | CPT/HCPCS: 97110; 97140 ==

== ENCOUNTER 2025-01-24 12:03 | Outpatient (RCR) | payer OTHER, SELFPAY | END 2025-01-24 12:44 | disposition home or self-care (01) | LOC: RPT 12:03 | PROVIDERS: ATTENDING PHYSICIAN Specialist; FAMILY PHYSICIAN Internal Medicine | DX: Z47.1 Aftercare following joint replacement surgery (principal); M19.011 Primary osteoarthritis, right shoulder; Z73.6 Limitation of activities due to disability; M62.81 Muscle weakness (generalized); G62.9 Polyneuropathy, unspecified; M25.511 Pain in right shoulder; Z96.611 Presence of right artificial shoulder joint | CPT/HCPCS: 97110; 97140 ==

== ENCOUNTER 2025-02-06 12:53 | Outpatient (RCR) | payer OTHER, SELFPAY | END 2025-02-06 23:59 | disposition home or self-care (01) | LOC: RPT 12:53 | PROVIDERS: FAMILY PHYSICIAN Internal Medicine | DX: M51.360 Other intervertebral disc degeneration, lumbar region with discogenic back pain only (principal); M48.062 Spinal stenosis, lumbar region with neurogenic claudication; Z73.6 Limitation of activities due to disability; R26.89 Other abnormalities of gait and mobility; G62.9 Polyneuropathy, unspecified | CPT/HCPCS: 97110; 97112; 97162 ==

== ENCOUNTER 2025-03-13 10:07 | Outpatient (RCR) | payer OTHER, SELFPAY | END 2025-03-13 23:59 | disposition home or self-care (01) | LOC: RPT 10:07 | PROVIDERS: ATTENDING PHYSICIAN Physical Medicine & Rehabilitation; FAMILY PHYSICIAN Internal Medicine | DX: M51.360 Other intervertebral disc degeneration, lumbar region with discogenic back pain only (principal); M48.062 Spinal stenosis, lumbar region with neurogenic claudication; Z73.6 Limitation of activities due to disability; R26.89 Other abnormalities of gait and mobility; G62.9 Polyneuropathy, unspecified | CPT/HCPCS: 97010; 97110; 97112; 97116; 97530 ==

== ENCOUNTER 2025-03-26 10:45 | Outpatient (RCR) | payer OTHER, SELFPAY | END 2025-03-26 23:59 | disposition home or self-care (01) | LOC: RPT 10:45 | PROVIDERS: ATTENDING PHYSICIAN Physical Medicine & Rehabilitation; FAMILY PHYSICIAN Internal Medicine | DX: M51.360 Other intervertebral disc degeneration, lumbar region with discogenic back pain only (principal); M48.062 Spinal stenosis, lumbar region with neurogenic claudication; Z73.6 Limitation of activities due to disability; R26.89 Other abnormalities of gait and mobility; G62.9 Polyneuropathy, unspecified | CPT/HCPCS: 97110; 97530 ==

== ENCOUNTER 2025-04-10 07:11 | Outpatient (RCR) | payer OTHER, SELFPAY | END 2025-04-10 23:59 | disposition home or self-care (01) | LOC: RPT 07:11 | PROVIDERS: ATTENDING PHYSICIAN Urology; FAMILY PHYSICIAN Internal Medicine | DX: N39.41 Urge incontinence (principal); N39.3 Stress incontinence (female) (male); N31.9 Neuromuscular dysfunction of bladder, unspecified; M62.89 Other specified disorders of muscle; Z73.6 Limitation of activities due to disability | CPT/HCPCS: 97163; 97530 ==

== ENCOUNTER → 2025-04-19 08:45 | Outpatient (REF) | payer OTHER, SELFPAY ==
[2025-04-19 12:07] LABS: Hematocrit 40.8 % (37.0-47.0); Hemoglobin 13.2 g/dL (12.0-16.0); Mean Corp Hgb Conc. 32.4 g/dL (33.0-37.0); Mean Corpuscular Volume 89.1 fL (81.0-99.0); Nucleated Red Blood Cells % 0 %; Platelet Count 260 10^3/uL (130-400); Red Cell Dist. Width 13.8 % (11.5-14.5)
[2025-04-19 12:24] LABS: ALT (SGPT) 16 U/L (0-35); AST (SGOT) 20 U/L (14-36); Albumin 4.3 g/dl (3.5-5.0); Alkaline Phosphatase 77 U/L (38-126); Blood Urea Nitrogen 30 mg/dl (7-17); Calcium 10.0 mg/dl (8.4-10.2); Carbon Dioxide 33 mmol/L (22-30); Chloride 103 mmol/L (98-107); Glucose 105 mg/dl (70-99); HDL Cholesterol 43 mg/dl; LDL Cholesterol, Calculated 169 mg/dl; Potassium 4.6 mmol/L (3.5-5.1); Sodium 141 mmol/L (135-145); Total Protein 6.6 g/dl (6.3-8.2); Very Low Density Lipoprotein 34 mg/dl (0-30); eGFR > 60.00
[2025-04-19 12:27] LABS: C-Reactive Protein < 5.00 mg/L (0.0-10.00)
[2025-04-19 12:31] LABS: Microalbumin, Random Urine 2.0 mg/dl (0.6-1.7)
[2025-04-19 12:54] LABS: Glycohemoglobin (HgbA1c) 6.1 % (4.0-5.6)
[2025-04-19 12:57] LABS: TSH 1.01 uIU/ml (0.47-4.68)
== END ==
LOC: HWLAB 08:45
PROVIDERS: ATTENDING PHYSICIAN Internal Medicine Rheumatology; FAMILY PHYSICIAN Internal Medicine
DX: M79.18 Myalgia, other site (principal); R53.83 Other fatigue; E78.5 Hyperlipidemia, unspecified; E11.9 Type 2 diabetes mellitus without complications; M79.7 Fibromyalgia
CPT/HCPCS: 36415; 80053; 80061; 82043; 83036; 84443; 85025; 85652; 86140

== ENCOUNTER 2025-05-08 13:15 | Outpatient (RCR) | payer OTHER, SELFPAY | END 2025-05-08 23:59 | disposition home or self-care (01) | LOC: RPT 13:15 | PROVIDERS: ATTENDING PHYSICIAN Urology; FAMILY PHYSICIAN Internal Medicine | DX: N39.41 Urge incontinence (principal); N39.3 Stress incontinence (female) (male); N31.9 Neuromuscular dysfunction of bladder, unspecified; M62.89 Other specified disorders of muscle; Z73.6 Limitation of activities due to disability | CPT/HCPCS: 97014; 97112; 97530 ==

== ENCOUNTER 2025-05-30 08:11 | Outpatient (RCR) | payer OTHER, SELFPAY | END 2025-05-30 23:59 | disposition home or self-care (01) | LOC: RPT 08:11 | PROVIDERS: ATTENDING PHYSICIAN Urology; FAMILY PHYSICIAN Internal Medicine | DX: N39.41 Urge incontinence (principal); N39.3 Stress incontinence (female) (male); N31.9 Neuromuscular dysfunction of bladder, unspecified; M62.89 Other specified disorders of muscle; Z73.6 Limitation of activities due to disability | CPT/HCPCS: 97014; 97110; 97112; 97530 ==

== ENCOUNTER → 2025-06-04 12:12 | Outpatient (REF) | payer OTHER, SELFPAY | LOC: HWRAD 12:12 | PROVIDERS: ATTENDING PHYSICIAN Urology; FAMILY PHYSICIAN Internal Medicine | DX: N13.30 Unspecified hydronephrosis (principal) | CPT/HCPCS: 76775 ==

== ENCOUNTER 2025-07-04 08:28 | Outpatient (RCR) | payer OTHER, SELFPAY | END 2025-07-04 23:59 | disposition home or self-care (01) | LOC: RPT 08:28 | PROVIDERS: ATTENDING PHYSICIAN Urology; FAMILY PHYSICIAN Internal Medicine | DX: N39.41 Urge incontinence (principal); N39.3 Stress incontinence (female) (male); N31.9 Neuromuscular dysfunction of bladder, unspecified; M62.89 Other specified disorders of muscle; Z73.6 Limitation of activities due to disability | CPT/HCPCS: 97530 ==

== ENCOUNTER → 2025-07-26 09:07 | Outpatient (REF) | payer OTHER, SELFPAY ==
[2025-07-26 10:52] LABS: Blood Urea Nitrogen 25 mg/dl (7-17); Calcium 10.2 mg/dl (8.4-10.2); Carbon Dioxide 32 mmol/L (22-30); Chloride 101 mmol/L (98-107); Glucose 116 mg/dl (70-99); Potassium 4.5 mmol/L (3.5-5.1); Sodium 139 mmol/L (135-145); eGFR > 60.00
[2025-07-26 11:04] LABS: Vitamin D, 25-OH*** 52.2 ng/mL (30-80)
[2025-07-26 11:34] LABS: Vitamin B12 267 pg/ml (239-931)
[2025-07-26 12:38] LABS: Urine Character Slightly Cloudy (Clear)
[2025-07-26 12:49] LABS: Urine Red Blood Cell 26-30 /HPF (0-2); Urine White Cell 30-40 /HPF (0-5)
== END ==
LOC: REG 09:07
PROVIDERS: ATTENDING PHYSICIAN Urology; FAMILY PHYSICIAN Internal Medicine
DX: E55.9 Vitamin D deficiency, unspecified (principal); N39.41 Urge incontinence
CPT/HCPCS: 36415; 80048; 81003; 81015; 82306; 82607; 87086